=== PATIENT | female | born 1980 | race African-American/Black ===

== ENCOUNTER 2017-01-30 00:41 | Emergency (ER) | payer OTHER ==
--- NOTE | ~2017-01-30 | CR151 ---
[facility] A Service of [facility] & [facility] / [facility] RADIOLOGY TEXT RESULTS PATIENT: MER AUGUSTINE LOCATION: [facility] : 76 UNIT #: [id number] AGE: [address]: Mukesh Stevenson MD SEX: F ORDER DR: [id number] [facility] [address] [place], [place] [address] [id number] E MR#: [id number] Acc #: [id number] NAME: MER AUGUSTINE : 1980 SEX: F STUDY DATE/TIME: 01/29/2017 00:17 UNIT: [facility] ROOM: STUDY DESCRIPTION: CR Hip Min 2 Views Rt Attending Physician: Mukseh Stevenson M.D. Ordering Physician: Mukesh Stevenson M.D. Primary Care Physician: Jace Malhotra M.D. MEDICAL IMAGING REPORT This report is preliminary unless electronic signature is present EXAM Right hip and pelvis 01/30/2017 at 00:29. INDICATIONS Right hip pain today after injury while on a forklift. TECHNIQUE AP pelvis was obtained in addition to a frog-leg right hip. FINDINGS Incidental note is made of an IUD within the central pelvis. No fracture or malalignment seen. Both femoral heads are normal. IMPRESSION Normal pelvis and right hip. Dictated by... Quentin Aponte Jr., M.D. THIS IS AN ELECTRONICALLY VERIFIED REPORT Quentin Aponte Jr., M.D. at 01/30/2017 12:39 PM RLK/pratibha TD: 01/30/2017 09:30 JOB #: [id number] MEDICAL IMAGING REPORT COPY
[~2017-01-30 00:41] MED LIST: ADVAIR 1001 DISK W/D PO; ADVAIR 250-501 EACH IH; ALBUTEROL17 G1; ALBUTEROL17 G1 PO; ALBUTEROL17 GM INH; ALLERGY10 M1 PO; BACTRIM DS TABL1 TA1 PO; CLARITIN10 MG PO; DICLOFENAC PO; FLAGYL PO; FLEXERIL PO; KETOPROFEN PO; PREDNISONE PO; SINGULAIR PO; ZOVIRAX200 M1 PO
== END 2017-01-30 01:15 | disposition home or self-care (01) ==
LOC: CED 00:41
DX: S30.0XXA Contusion of lower back and pelvis, initial encounter (principal); S70.01XA Contusion of right hip, initial encounter; W22.01XA Walked into wall, initial encounter; Y93.89 Activity, other specified; Y92.69 Other specified industrial and construction area as the place of occurrence of the external cause; Y99.0 Civilian activity done for income or pay; J44.9 Chronic obstructive pulmonary disease, unspecified; J45.909 Unspecified asthma, uncomplicated; Z98.890 Other specified postprocedural states; Z91.040 Latex allergy status; Z88.8 Allergy status to other drugs, medicaments and biological substances
CPT/HCPCS: 73502; 99283

== ENCOUNTER 2017-05-30 17:55 | Emergency (ER) | payer OTHER | END 2017-05-30 19:55 | disposition left against medical advice (07) | LOC: CED 17:55 | DX: Z53.21 Procedure and treatment not carried out due to patient leaving prior to being seen by health care provider (principal) ==